=== PATIENT | male | born 1990 | race Caucasian/White ===

== ENCOUNTER 2017-01-12 08:21 | Emergency (ER) | payer OTHER ==
[~2017-01-12] VITALS: Wt 79.0 kg
[2017-01-12] MEDS ORDERED: SOD CHLORIDE 0.9% 1,000 ML IV STA (09:15)
[2017-01-12] MEDS ORDERED: ONDANSETRON 4 MG INJ IV STA (09:15)
[2017-01-12] MEDS ORDERED: morphine 4 MG/ML VIAL IV STA (09:15)
[2017-01-12 09:38] LABS: ADD SCAN DIFF NO
[2017-01-12 09:41] LABS: BASOPHILS % 0.1 % (0.0-2.0); HEMATOCRIT 44.6 % (42.0-52.0); HEMOGLOBIN 14.9 g/dl (14.0-18.0); LYMPHOCYTES # 0.8 10^3/ul (0.8-2.9); LYMPHOCYTES % 4.3 % (15.0-51.0); MEAN CORPUSCULAR HEMOGLOBIN 30.3 pg (29.0-33.0); MEAN CORPUSCULAR HGB CONC 33.4 g/dl (32.0-37.0); MEAN CORPUSCULAR VOLUME 90.8 fl (82.0-101.0); MEAN PLATELET VOLUME 9.7 fl (7.4-10.4); MONOCYTE # 0.7 10^3/ul (0.3-0.9); MONOCYTES % 3.9 % (0.0-11.0); NEUTROPHIL # 16.3 10^3/ul (1.6-7.5); NEUTROPHILS % 91.2 % (39.0-77.0); PLATELET COUNT 239 10^3/UL (140-415); RED BLOOD COUNT 4.91 10^6/ul (4.70-6.10); RED CELL DISTRIBUTION WIDTH 12.8 % (11.5-14.5); WHITE BLOOD COUNT 17.9 10^3/ul (4.8-10.8)
[2017-01-12 09:42] LABS: ADD UMIC NO; URINE BILIRUBIN (Dip) NEGATIVE (NEGATIVE); URINE BLOOD (Dip) NEGATIVE (NEGATIVE); URINE COLOR LT. YELLOW (YELLOW); URINE GLUCOSE (Dip) NEGATIVE (NEGATIVE); URINE KETONES (Dip) NEGATIVE (NEGATIVE); URINE LEUKOCYTE ESTERASE (Dip) NEGATIVE (NEGATIVE); URINE NITRITE (Dip) NEGATIVE (NEGATIVE); URINE TOTAL PROTEIN (Dip) NEGATIVE (NEGATIVE); URINE UROBILINOGEN (Dip) 0.2 E.U./dL (0.1-1.0)
[2017-01-12 09:54] LABS: ALBUMIN 4.5 g/dl (3.3-4.9)
[2017-01-12 09:55] LABS: INR 0.95; PARTIAL THROMBOPLASTIN TIME 33.9 Sec (25.0-35.0); POTASSIUM 4.2 mmol/L (3.5-5.1); PROTIME 12.7 Sec (12.2-14.2)
[2017-01-12 09:57] LABS: ALBUMIN/GLOBULIN RATIO 1.73; BILIRUBIN,INDIRECT 1.2 mg/dl (0-1.1); BILIRUBIN,TOTAL 1.2 mg/dl (0.2-1.3); CREATININE 0.7 mg/dl (0.61-1.24); TOTAL PROTEIN 7.1 g/dl (6.1-8.1)
[2017-01-12 09:58] LABS: CALCIUM 9.5 mg/dl (8.4-10.2)
[2017-01-12] MEDS ORDERED: SOD CHLORIDE 0.9% 100 ML ONE (10:09)
[2017-01-12] MEDS ORDERED: IOHEXOL 300MG/ML 150 ML BTL ONE (10:09)
--- NOTE | 2017-01-12 10:36 | RADRPT ---
PROCEDURE: CT abdomen and pelvis with contrast. CLINICAL INDICATION: abdominal pain TECHNIQUE: CT scan of the abdomen and pelvis with contrast [facility] The patient was scanned after administration of 90 cc of Omnipaque-300 intravenous contrast. Sagittal and coronal reformatted images were obtained from the axial source images. DLP 918.3 mGycm. CTDIvol 15.3 mGy COMPARISON: None. FINDINGS: The lung bases are clear. There is no evidence of bowel obstruction or appendicitis. There is a wall thickening seen involvin g a long segment of the distal ileum with adjacent mild fat stranding. There is edematous density o f the involved distal ileum and there are multiple adjacent mildly enlarged lymph node seen along wi th a small amount of free fluid. There is no evidence of perforation or abscess. There is vascular and fatty proliferation of the mesentery in the right lower quadrant. There is normal density and enhancement of the liver with no focal lesion or biliary ductal dilatati on. The gallbladder is unremarkable without inflammation, and the portal vein is intact without thr ombus. The spleen is unremarkable without mass. The adrenal glands are within normal limits without mass. The kidneys enhance symmetrically bilaterally without hydronephrosis or perinephric stranding. The pancreas is unremarkable without focal lesion or surrounding inflammatory changes. The aorta is unremarkable and there is no acute osseous abnormality. Delete the The uterus and adnexal structures within normal limits. IMPRESSION: There is an inflamed loop of distal ileum seen in the right lower quadrant with signs of both acute and chronic inflammation and this is suggestive for a terminal ileitis which may be infectious or in flammatory in nature and Crohn disease is considered within the differential. There is no evidence of obstruction, visible perforation, or abscess. There is mild free fluid seen in the pelvis and th ere are adjacent enlarged lymph nodes which are likely reactive in nature. There is no obstruction or appendicitis. RPTAT: AA .Liliam Ayala MD, Date Time Electronically viewed and signed by .Liliam Ayala MD, MD on 01/12/2017 10:36 .J/
--- NOTE | 2017-01-12 11:21 | ERD ---
ER Documentation Chief Complaint Date/Time DATE: 01/12/17 Chief Complaint Abdominal pain HPI The patient is a 26-year-old male who presents to the Emergency Department with complaint of abdominal pain that began four hours ago. The pain is localized to the lower abdomen, right and left lower quadrants, but mostly on the right. The pain was [id number], but has been constant since presentation. It is aching in nature. He rates his current pain as 8/10 in intensity. The pain is worse upon sitting or laying, and is improved with standing and ambulation. He reports 2 episodes of nonbilious, nonbloody emesis, and 7 episodes of diarrhea. Denies any black or bloody stools. The patient, and his mom (who is bedside) , state that he has experienced this pain in the past, but is always told that it is likely viral and has never been worked up for it. He denies fevers or chills. Denies dysuria, hematuria or flank pain. Denies testicular pain, swelling or discharge. Denies recent travel. Denies stream water exposure. Denies immunocompromised state. Denies recent antibiotic use. ROS All systems reviewed and are negative except as per history of present illness. Medications Home Meds Active Scripts Hydrocodone/Acetaminophen ([place] 5-325 Tablet) 1 Each Tablet, 1 EACH PO Q6, #10 TAB Prov:CARLY VALENZUELA PA-C 01/12/17 Metronidazole* (Flagyl*) 500 Mg Tablet, 500 MG PO TID for 10 Days, TAB Prov:CARLY VALENZUELA PA-C 01/12/17 Ciprofloxacin Hcl* (Ciprofloxacin Hcl*) 500 Mg Tablet, 500 MG PO BID for 10 Days , TAB Prov:CARLY VALENZUELA PA-C 01/12/17 Allergies Allergies: Coded Allergies: No Known Allergy (Unverified , 01/13/17) PMhx/Soc Medical and Surgical Hx: pt denies Medical Hx, pt denies Surgical Hx Physical Exam Vitals Vital Signs Date Time Temp Pulse Resp B/P Pulse Ox O2 Delivery O2 Flow Rate FiO2 01/12/17 08:23 98.0 71 18 137/79 99 Physical Exam GENERAL: Well-developed, well-nourished, in no acute distress HEENT: Head is normocephalic, atraumatic. No scleral pallor or icterus. Pupils equal, round and reactive to light. Conjunctiva pink. Moist mucous membranes. NECK: Supple. No masses, no tenderness, no lymphadenopathy. Trachea midline. RESPIRATORY: Lungs are clear to auscultation bilaterally. Equal breath sounds. Normal expiratory effort. CARDIOVASCULAR: Regular rate and rhythm. S1 and S2 normal. No murmurs, rubs, or gallops. GASTROINTESTINAL: Abdomen is soft and nondistended. Tenderness to palpation over the right lower quadrant and minimally over the left lower quadrant of the abdomen. No guarding, no rebound tenderness. Positive bowel sounds. No masses palpated. Negative Bliss's sign. FLANK: No CVA tenderness, no mass or swelling. BACK: No midline tenderness. EXTREMITIES: No clubbing, cyanosis, or edema. Normal skin perfusion. Moving all extremities. No focal swelling or erythema. Distal pulses are palpable, 2+ bilaterally. Capillary refill is less than 2 seconds. NEUROLOGIC: The patient is alert, awake, and oriented x 3. No focal neurologic deficits. Speech is normal. INTEGUMENT: Skin is clean, dry and intact. No rashes, lesions or petechiae present. PSYCHIATRIC: Appropriate; Cooperative. Result Diagram: 01/12/17 0930 01/12/17 0930 Results 24 hrs Laboratory Tests Test 01/12/17 09:30 Activated Partial Thromboplast Time 33.9Sec Alanine Aminotransferase (ALT/SGPT) 26IU/L Albumin 4.5g/dl Albumin/Globulin Ratio 1.73 Alkaline Phosphatase 101IU/L Anion Gap 16 Aspartate Amino Transf (AST/SGOT) 25IU/L Basophils # 0.010^3/ul Basophils % 0.1% Blood Urea Nitrogen 14mg/dl Calcium Level 9.5mg/dl Carbon Dioxide Level 29mmol/L Chloride Level 104mmol/L Creatinine 0.70mg/dl Direct Bilirubin 0.00mg/dl Eosinophils # 0.010^3/ul Eosinophils % 0.0% Globulin 2.60g/dl Glucose Level 115mg/dl Hematocrit 44.6% Hemoglobin 14.9g/dl INR International Normalized Ratio 0.95 Indirect Bilirubin 1.2mg/dl Lipase 76U/L Lymphocytes # 0.810^3/ul Lymphocytes % 4.3% Mean Corpuscular Hemoglobin 30.3pg Mean Corpuscular Hemoglobin Concent 33.4g/dl Mean Corpuscular Volume 90.8fl Mean Platelet Volume 9.7fl Monocytes # 0.710^3/ul Monocytes % 3.9% Neutrophils # 16.310^3/ul Neutrophils % 91.2% Nucleated Red Blood Cells # 0.010^3/ul Nucleated Red Blood Cells % 0.0/100WBC Platelet Count 33218^3/UL Potassium Level 4.2mmol/L Prothrombin Time 12.7Sec Prothrombin Time Ratio 1.0 Red Blood Count 4.9110^6/ul Red Cell Distribution Width 12.8% Sodium Level 145mmol/L Total Bilirubin 1.2mg/dl Total Protein 7.1g/dl Urine Bilirubin NEGATIVE Urine Clarity CLEAR Urine Color LT. YELLOW Urine Glucose NEGATIVE% Urine Hemoglobin NEGATIVE Urine Ketones NEGATIVE Urine Leukocyte Esterase NEGATIVE Urine Nitrite NEGATIVE Urine Specific [place] 1.015 Urine Total Protein NEGATIVE Urine Urobilinogen 0.2 E.U./dL Urine pH 7.0 White Blood Count 17.910^3/ul Current Medications Medications (Trade) Dose Ordered Sig/Vikas Route PRN Reason Start Time Stop Time Status Last Admin Dose Admin Sodium Chloride (NS) 1,000 ml @ 1,000 mls/hr Q1H STAT IV 01/12/17 09:15 01/12/17 10:14 DC 01/12/17 09:31 Morphine Sulfate (morphine) 4 mg ONCE STAT IV 01/12/17 09:15 01/12/17 09:17 DC 01/12/17 09:32 Ondansetron HCl (Zofran Inj) 4 mg ONCE STAT IV 01/12/17 09:15 01/12/17 09:17 DC 01/12/17 09:31 Iohexol 150 ml 150 ml STK-MED ONCE .ROUTE 01/12/17 10:09 01/12/17 10:10 DC 01/12/17 10:25 Sodium Chloride (NS) 100 ml @ ud STK-MED ONCE .ROUTE 01/12/17 10:09 01/12/17 10:10 DC 01/12/17 10:25 Procedures/MDM The patient's case was reviewed and discussed with Dr. Sparrow, who agrees with the plan of care including labs, treatment and advanced imaging as appropriate. DIAGNOSTIC TESTS AND INTERPRETATION: PROCEDURE: CT abdomen and pelvis with contrast. CLINICAL INDICATION: abdominal pain TECHNIQUE: CT scan of the abdomen and pelvis with contrast was performed on a multi-slice CT scanner . The patient was scanned after administration of 90 cc of Omnipaque-300 intravenous contrast. Sagittal and coronal reformatted images were obtained from the axial source images. DLP 918.3 mGycm. CTDIvol 15.3 mGy COMPARISON: None. FINDINGS: The lung bases are clear. There is no evidence of bowel obstruction or appendicitis. There is a wall thickening seen involving a long segment of the distal ileum with adjacent mild fat stranding. There is edematous density of the involved distal ileum and there are multiple adjacent mildly enlarged lymph node seen along with a small amount of free fluid. There is no evidence of perforation or abscess. There is vascular and fatty proliferation of the mesentery in the right lower quadrant. There is normal density and enhancement of the liver with no focal lesion or biliary ductal dilatation. The gallbladder is unremarkable without inflammation , and the portal vein is intact without thrombus. The spleen is unremarkable without mass. The adrenal glands are within normal limits without mass. The kidneys enhance symmetrically bilaterally without hydronephrosis or perinephric stranding. The pancreas is unremarkable without focal lesion or surrounding inflammatory changes. The aorta is unremarkable and there is no acute osseous abnormality. Delete the The uterus and adnexal structures within normal limits. IMPRESSION:There is an inflamed loop of distal ileum seen in the right lower quadrant with signs of both acute and chronic inflammation and this is suggestive for a terminal ileitis which may be infectious or inflammatory in nature and Crohn disease is considered within the differential. There is no evidence of obstruction, visible perforation, or abscess. There is mild free fluid seen in the pelvis and there are adjacent enlarged lymph nodes which are likely reactive in nature. There is no obstruction or appendicitis. .Liliam Ayala MD, Date Time Electronically viewed and signed by .Liliam Ayala MD, on 01/12/2017 10:36 MEDICAL DECISION MAKING: This is a 26-year-old male presenting to the Emergency Department with lower abdominal pain. On physical examination, he had tenderness to palpation over the lower abdomen, most notable in the right lower quadrant. The differential diagnosis includes, but is not limited to, diverticulitis, nephrolithiasis, urinary tract infection, small bowel obstruction, IBS, neoplastic disease, herpes zoster, AAA, appendicitis, pyelonephritis, infectious colitis, IBD, inguinal hernia, mesenteric ischemia, epiploic appendagitis, torsion, intra-abdominal abscess. CBC revealed leukocytosis of 17.9. CT abdomen and pelvis with contrast noted an inflamed loop of distal ileum seen in the right lower quadrant with signs of both acute and chronic inflammation and this is suggestive for a terminal ileitis which may be infectious or inflammatory in nature and Crohn disease is considered within the differential. Otherwise, no evidence of obstruction, visible perforation, abscess, or appendicitis. The patient's condition improved during their stay after the administration of medications and serial evaluations with stable vital signs. On re-evaluation, the patient reports no new complaints and decreased pain. Upon my review and interpretation of the patient's presentation, clinical data, and overall ER course, I believe the patient's symptoms are most consistent with terminal ileitis. Patent with likely underlying IBD, and will therefore need to follow up with GI specialist for colonoscopy and further evaluation/ management. I doubt cholecystitis, no significant upper abdominal pain, abnormalities or indication of disease process noted on examination, negative Bliss's sign. Doubt acute coronary syndrome - symptoms and examination inconsistent. Doubt pancreatitis - clinical presentation inconsistent, lipase not elevated, no indication on CT. Doubt perforated ulcer, patient has a non-surgical abdomen. Doubt small bowel obstruction, patient is passing flatus, abdomen is non- distended. Doubt appendicitis, no evidence on CT, no guarding, non-surgical abdomen. Doubt ischemic bowel, no pain out of proportion to examination. Doubt torsion, symptoms and examination inconsistent. Discussed results with Dr. Sparrow, who recommends that the patient be discharged home with rx Ciprofloxacin and Flagyl, and that he follow up with GI specialist for further evaluation of likely IBD. At this time, the patient is in stable condition and therefore can be discharged home with prescriptions for Ciprofloxacin, Flagyl, and [place] and strict return precautions for signs of deteriorating or worsening condition. The patient is advised to follow up with his primary care provider and GI specialist within 1-2 days for reevaluation and further management or return to the ER sooner for any new or worsening symptoms. I shared all laboratory and diagnostic imaging studies with the patient at length and in great detail, and the patient verbally understands and agrees with the plan for further observation and care as an outpatient. At the time of discharge, all questions were answered. Departure Diagnosis: Primary Impression: Terminal ileitis Digestive disease complication type: without complication Qualified Code: K50.00 - Terminal ileitis, without complications Condition: Stable Patient Instructions: Crohn's Disease, Ileus, What Is Crohn's Disease? Referrals: NAVEEN FOWLER MD Additional Instructions: Call your primary care doctor TOMORROW for an appointment during the next 1-2 days.See the doctor sooner or return here if your condition worsens before your appointment time. CARLY VALENZUELA PA-C Jan 12, 2017 11:21
[2017-01-12] MEDS ORDERED: CIPR500T4 PO (11:22)
[2017-01-12] MEDS ORDERED: METR500T PO (11:22)
[2017-01-12] MEDS ORDERED: HYDR-906 PO (11:23)
== END 2017-01-12 11:46 | disposition home or self-care (01) ==
LOC: FTE 08:21
DX: K50.00 Crohn's disease of small intestine without complications (principal)
CPT/HCPCS: 36415; 74177; 80053; 81003; 83690; 85025; 85610; 85730; 96374; 96375; J2270; J2405; J7030; Q9967; Z7502; Z7610